=== PATIENT | male | born 1985 | race African-American/Black ===

== ENCOUNTER 2019-10-08 03:49 | Emergency (ER) | payer OTHER ==
[~2019-10-08] VITALS: Ht 182.9 cm; Wt 93.0 kg
[2019-10-08] MEDS ORDERED: ASPIRIN 81MG TABLET PO ONE (04:15)
[2019-10-08] MEDS ORDERED: VISCOUS LIDOCAINE 2% 15 ML UDC PO ONE (04:15)
[2019-10-08] MEDS ORDERED: MAGNESIUM/ALUMINUM HYDROXIDE/SIMETHICONE 30ML UDC PO ONE (04:15)
[2019-10-08] MEDS ORDERED: CLONIDINE 0.2MG TABLET PO ONE (04:15)
[2019-10-08 04:26] LABS: EOSINOPHILS % 4.1 % (0.0-5.0); HEMATOCRIT. 44.8 % (42.0-52.0); HEMOGLOBIN. 14.2 g/dL (14.0-18.0); LYMPHOCYTES % 35.3 % (20.0-50.0); MEAN CORPUSCULAR VOLUME 69.1 fL (80.0-94.0); MEAN PLATELET VOLUME 8.9 fl (7.4-10.4); MONOCYTES % 13.7 % (2.0-8.0); NEUTROPHILS % 45.9 % (40.0-76.0); PLATELET 204 x1000/uL (130-400); RED BLOOD CELL COUNT 6.48 mill/uL (4.7-6.1); RED CELL DISTRIBUTION WIDTH 15.5 % (11.6-14.6)
[2019-10-08 04:30] LABS: CHLORIDE 105 mEq/L (98-107)
[2019-10-08 04:44] LABS: PLATELET ESTIMATE NORMAL
[2019-10-08 06:12] VITALS: BP 166/96
== END 2019-10-08 06:13 | disposition home or self-care (01) ==
LOC: ER 03:49
DX: R07.89 Other chest pain (principal); I10 Essential (primary) hypertension
CPT/HCPCS: 36415; 71045; 80053; 83880; 84484; 85025; 93005; 99285; Z7610